=== PATIENT | male | born 1960 | race Caucasian/White ===

== ENCOUNTER → 2017-06-20 | Outpatient (CLI) | payer BC ==
[2017-06-20 07:35] LABS: ALT 38 U/L (21-72); AST 27 U/L (17-59); Albumin 4.2 g/dL (3.5-5.0); Alkaline Phosphatase 63 U/L (38-126); Anion Gap 9 mmol/L; Blood Urea Nitrogen 19 mg/dL (9-20); Calcium 9.5 mg/dL (8.4-10.2); Carbon Dioxide 31 mmol/L (22-30); Chloride 101 mmol/L (98-107); Cholesterol 171 mg/dL (<200); Glucose 101 mg/dL (74-99); HDL Cholesterol 43 mg/dL (40-60); LDL Cholesterol,Calculated 108 mg/dL (0-99); Potassium 4.6 mmol/L (3.5-5.1); Sodium 141 mmol/L (137-145); Total Bilirubin 0.5 mg/dL (0.2-1.3); Total Protein 7.2 g/dL (6.3-8.2); Triglycerides 101 mg/dL (<150)
== END | disposition home or self-care (01) ==
LOC: LABWHC1 06:59
PROVIDERS: ATTEND Internal Medicine Endocrinology, Diabetes & Metabolism
DX: E10.65 Type 1 diabetes mellitus with hyperglycemia (principal); E03.8 Other specified hypothyroidism; E78.5 Hyperlipidemia, unspecified
CPT/HCPCS: 36415; 80053; 80061; 82043; 82570; 84439; 84443

== ENCOUNTER → 2017-10-19 | Outpatient (CLI) | payer BC | END | disposition home or self-care (01) | LOC: LABWHC1 11:42 | PROVIDERS: ATTEND Internal Medicine Endocrinology, Diabetes & Metabolism | DX: E10.65 Type 1 diabetes mellitus with hyperglycemia (principal) | CPT/HCPCS: 36415; 84443 ==

== ENCOUNTER → 2018-02-27 | Outpatient (CLI) | payer BC ==
[2018-02-27 11:29] LABS: Albumin 4.2 g/dL (3.80-4.90); Albumin/Globulin Ratio 1.83 (1.20-2.10); Anion Gap 4.4 mmol/L (4.00-12.00); Carbon Dioxide 30.6 mmol/L (21.6-31.8); Globulin 2.3 g/dL (2.1-3.7); LDL Cholesterol,Calculated 83.8 mg/dL (0.0-131.0); Potassium 4.3 mmol/L (3.5-5.5); Total Bilirubin 0.3 mg/dL (0.2-1.2); Total Protein 6.5 g/dL (6.2-8.2); VLDL Calculation 29.2 mg/dL (5.00-40.00)
[2018-02-27 11:38] LABS: PSA Annual Screen 0.3 ng/mL (0.0-4.0)
[2018-02-27 12:57] LABS: Hemoglobin A1C 8.3 % (4.0-6.0)
== END | disposition home or self-care (01) ==
LOC: LABWHC1 07:05
PROVIDERS: ATTEND Internal Medicine Endocrinology, Diabetes & Metabolism
DX: E10.65 Type 1 diabetes mellitus with hyperglycemia (principal); E03.8 Other specified hypothyroidism; Z12.5 Encounter for screening for malignant neoplasm of prostate
CPT/HCPCS: 80061; 80053; 84443; 82043; 82570; 83036; 36415; G0103

== ENCOUNTER → 2018-10-04 | Outpatient (CLI) | payer OTHER ==
[2018-10-04 16:58] LABS: African American GFR (CKD) 77.3 (60.0-200.0); Albumin 4.1 g/dL (3.80-4.90); Albumin/Globulin Ratio 1.41 (1.60-3.17); Anion Gap 7.5 mmol/L (4.00-12.00); BUN/Creat Ratio 16.67 Ratio (12.00-20.00); Calcium 9.2 mg/dL (8.7-10.3); Carbon Dioxide 27.5 mmol/L (21.6-31.8); Globulin 2.9 g/dL (1.6-3.3); LDL Cholesterol,Calculated 149.6 mg/dL (0.0-131.0); Potassium 4.2 mmol/L (3.5-5.5); Total Bilirubin 0.5 mg/dL (0.3-1.2); VLDL Calculation 22.4 mg/dL (5.00-40.00)
[2018-10-04 19:06] LABS: Hemoglobin A1C 7.7 % (4.0-6.0)
== END | disposition home or self-care (01) ==
LOC: LABWHC1 07:51
PROVIDERS: ATTEND Internal Medicine Endocrinology, Diabetes & Metabolism
DX: E10.65 Type 1 diabetes mellitus with hyperglycemia (principal)
CPT/HCPCS: 36415; 80053; 80061; 82043; 82570; 83036; 84443

== ENCOUNTER → 2019-02-15 | Outpatient (CLI) | payer OTHER ==
[2019-02-15 11:46] LABS: African American GFR (CKD) 70.2 (60.0-200.0); Albumin 4.3 g/dL (3.80-4.90); Albumin/Globulin Ratio 1.65 (1.60-3.17); Anion Gap 9.9 mmol/L (4.00-12.00); BUN/Creat Ratio 13.85 Ratio (12.00-20.00); Calcium 9.5 mg/dL (8.7-10.3); Carbon Dioxide 30.1 mmol/L (21.6-31.8); Chol/HDL Ratio 4.09; Globulin 2.6 g/dL (1.6-3.3); LDL Cholesterol,Calculated 109.8 mg/dL (0.0-131.0); Potassium 4.4 mmol/L (3.5-5.5); Total Bilirubin 0.5 mg/dL (0.2-1.2); Total Protein 6.9 g/dL (6.2-8.2); VLDL Calculation 23.2 mg/dL (5.00-40.00)
[2019-02-15 12:16] LABS: Hemoglobin A1C 8.1 % (4.0-6.0)
== END | disposition home or self-care (01) ==
LOC: LABWHC1 07:29
PROVIDERS: ATTEND Internal Medicine Endocrinology, Diabetes & Metabolism
DX: E10.65 Type 1 diabetes mellitus with hyperglycemia (principal); I10 Essential (primary) hypertension; E03.8 Other specified hypothyroidism; E78.2 Mixed hyperlipidemia; Z96.41 Presence of insulin pump (external) (internal); Z87.891 Personal history of nicotine dependence
CPT/HCPCS: 36415; 80053; 80061; 82043; 82570; 83036; 84443

== ENCOUNTER → 2019-09-26 | Outpatient (CLI) | payer OTHER ==
[2019-09-26 18:22] LABS: African American GFR (CKD) 69.7 (60.0-200.0); Albumin 4.4 g/dL (3.80-4.90); Albumin/Globulin Ratio 1.57 (1.60-3.17); Anion Gap 8.8 mmol/L (4.00-12.00); BUN/Creat Ratio 16.15 Ratio (12.00-20.00); Calcium 9.7 mg/dL (8.7-10.3); Carbon Dioxide 26.2 mmol/L (21.6-31.8); Chol/HDL Ratio 4.45; Globulin 2.8 g/dL (1.6-3.3); LDL Cholesterol,Calculated 121.8 mg/dL (0.0-131.0); Non-African American GFR(CKD) 60.1 (60.0-200.0); Potassium 4.2 mmol/L (3.5-5.5); Total Bilirubin 0.7 mg/dL (0.3-1.2); Total Protein 7.2 g/dL (6.2-8.2); VLDL Calculation 23.2 mg/dL (5.00-40.00)
[2019-09-26 18:42] LABS: Urine Creatinine 100.5 mg/dL
[2019-09-26 20:51] LABS: Hemoglobin A1C 7.6 % (4.0-6.0)
== END | disposition home or self-care (01) ==
LOC: LABWHC1 08:12
PROVIDERS: ATTEND Internal Medicine Endocrinology, Diabetes & Metabolism
DX: E10.65 Type 1 diabetes mellitus with hyperglycemia (principal)
CPT/HCPCS: 36415; 80053; 80061; 82043; 82570; 83036; 84443

== ENCOUNTER → 2020-04-23 | Outpatient (CLI) | payer OTHER ==
[2020-04-23 16:35] LABS: Hemoglobin A1C 7.5 % (4.0-6.0)
[2020-04-23 17:20] LABS: African American GFR (CKD) 69.2 (60.0-200.0); Albumin 4.6 g/dL (3.80-4.90); Albumin/Globulin Ratio 1.77 (1.60-3.17); BUN/Creat Ratio 13.85 Ratio (12.00-20.00); Calcium 9.4 mg/dL (8.7-10.3); Chol/HDL Ratio 4.79; Globulin 2.6 g/dL (1.6-3.3); LDL Cholesterol,Calculated 140.8 mg/dL (0.0-131.0); Non-African American GFR(CKD) 59.7 (60.0-200.0); Potassium 4.1 mmol/L (3.5-5.5); Total Bilirubin 0.5 mg/dL (0.3-1.2); Total Protein 7.2 g/dL (6.2-8.2); VLDL Calculation 22.2 mg/dL (5.00-40.00)
[2020-04-23 20:36] LABS: Urine Creatinine 204.4 mg/dL
== END | disposition home or self-care (01) ==
LOC: LABWHC1 07:54
PROVIDERS: ATTEND Internal Medicine Endocrinology, Diabetes & Metabolism
DX: E10.65 Type 1 diabetes mellitus with hyperglycemia (principal)
CPT/HCPCS: 36415; 80053; 80061; 82043; 82570; 83036; 84443

== ENCOUNTER → 2020-11-05 | Outpatient (CLI) | payer OTHER ==
[2020-11-05 12:14] LABS: Urine Creatinine 188.7 mg/dL
[2020-11-05 15:11] LABS: African American GFR (CKD) 76.3 (60.0-200.0); Albumin 4.4 g/dL (3.80-4.90); Albumin/Globulin Ratio 1.63 (1.60-3.17); Anion Gap 15.6 mmol/L (4.00-12.00); BUN/Creat Ratio 18.33 Ratio (12.00-20.00); Carbon Dioxide 19.4 mmol/L (21.6-31.8); Chol/HDL Ratio 4.44; Globulin 2.7 g/dL (1.6-3.3); LDL Cholesterol,Calculated 97.2 mg/dL (0.0-131.0); Non-African American GFR(CKD) 65.8 (60.0-200.0); Potassium 4.3 mmol/L (3.5-5.5); Total Bilirubin 0.5 mg/dL (0.3-1.2); Total Protein 7.1 g/dL (6.2-8.2); VLDL Calculation 19.8 mg/dL (5.00-40.00)
[2020-11-05 16:35] LABS: Hemoglobin A1C 7.9 % (4.0-6.0)
== END | disposition home or self-care (01) ==
LOC: LABWHC1 07:14
PROVIDERS: ATTEND Internal Medicine Endocrinology, Diabetes & Metabolism
DX: E10.65 Type 1 diabetes mellitus with hyperglycemia (principal); E03.8 Other specified hypothyroidism
CPT/HCPCS: 36415; 80053; 80061; 82043; 82570; 83036; 84443

== ENCOUNTER → 2021-08-16 | Outpatient (CLI) | payer OTHER ==
[2021-08-17 02:34] LABS: ALT 27 U/L (10-49); AST 24 U/L (14-35); African American GFR (CKD) 62.8 (60.0-200.0); Albumin 4.4 g/dL (3.8-4.9); Albumin/Globulin Ratio 1.52 (1.60-3.17); Alkaline Phosphatase 51 U/L (41-126); BUN/Creat Ratio 12.57 Ratio (12.00-20.00); Blood Urea Nitrogen 17.6 mg/dL (9.0-27.0); Calcium 9.3 mg/dL (8.7-10.3); Carbon Dioxide 23.4 mmol/L (20.0-27.5); Chloride 101 mmol/L (96-109); Chol/HDL Ratio 4.31 Ratio; Globulin 2.9 g/dL (1.6-3.3); Glucose 83 mg/dL (70-110); LDL Cholesterol,Calculated 110.9 mg/dL (0.0-131.0); Non-African American GFR(CKD) 54.2 (60.0-200.0); Sodium 137 mmol/L (135-145); Total Protein 7.3 g/dL (6.2-8.2)
== END | disposition home or self-care (01) ==
LOC: LABWHC1 07:05
PROVIDERS: ATTEND Internal Medicine Endocrinology, Diabetes & Metabolism
DX: E10.65 Type 1 diabetes mellitus with hyperglycemia (principal)
CPT/HCPCS: 36415; 80053; 80061; 82043; 82570; 83036; 84443

== ENCOUNTER → 2022-01-18 | Outpatient (CLI) | payer OTHER ==
[2022-01-18 12:56] LABS: Creatinine,Urine Random 118.8 mg/dL
[2022-01-18 15:04] LABS: LDL Cholesterol,Calculated 100.6 mg/dL (0.0-131.0); VLDL Calculation 19.08 mg/dL (5.00-40.00)
[2022-01-18 15:05] LABS: ALT 23 U/L (10-49); AST 18 U/L (14-35); Albumin 4.3 g/dL (3.8-4.9); Albumin/Globulin Ratio 1.61 (1.60-3.17); Alkaline Phosphatase 62 U/L (41-126); BUN/Creat Ratio 13.72 Ratio (12.00-20.00); Blood Urea Nitrogen 16.6 mg/dL (9.0-27.0); Calcium 9.5 mg/dL (8.7-10.3); Carbon Dioxide 28.5 mmol/L (20.0-27.5); Chloride 98 mmol/L (96-109); Globulin 2.7 g/dL (1.6-3.3); Glucose 214 mg/dL (70-110); Non-African American GFR(CKD) 64.7 (60.0-200.0); Potassium 4.8 mmol/L (3.5-5.5); Sodium 135 mmol/L (135-145)
== END | disposition home or self-care (01) ==
LOC: LABWHC1 07:26
PROVIDERS: ATTEND Internal Medicine Endocrinology, Diabetes & Metabolism
DX: E10.65 Type 1 diabetes mellitus with hyperglycemia (principal)
CPT/HCPCS: 36415; 80053; 80061; 82570; 83036; 84156; 84443

== ENCOUNTER → 2022-08-23 | Outpatient (CLI) | payer OTHER ==
[2022-08-23 11:10] LABS: ALT 25 U/L (10-49); AST 16 U/L (14-35); African American GFR (CKD) 75.2 (60.0-200.0); Albumin 4.4 g/dL (3.8-4.9); Albumin/Globulin Ratio 1.69 (1.60-3.17); Alkaline Phosphatase 62 U/L (41-126); BUN/Creat Ratio 12.33 Ratio (12.00-20.00); Blood Urea Nitrogen 14.8 mg/dL (9.0-27.0); Calcium 9.6 mg/dL (8.7-10.3); Carbon Dioxide 28.3 mmol/L (20.0-27.5); Chloride 100 mmol/L (96-109); Globulin 2.6 g/dL (1.6-3.3); Glucose 158 mg/dL (70-110); LDL Cholesterol,Calculated 102.6 mg/dL (0.0-131.0); Non-African American GFR(CKD) 64.9 (60.0-200.0); Potassium 4.6 mmol/L (3.5-5.5); Sodium 139 mmol/L (135-145)
[2022-08-23 17:33] LABS: Microalbumin Creatinine Ratio <30 mg/g Creat (0-30); Urine Creatinine 91.3 mg/dL (39.0-259.0)
== END | disposition home or self-care (01) ==
LOC: LABWHC1 07:12
PROVIDERS: ATTEND Internal Medicine Endocrinology, Diabetes & Metabolism
DX: E10.65 Type 1 diabetes mellitus with hyperglycemia (principal)
CPT/HCPCS: 36415; 80053; 80061; 82043; 82570; 83036; 84153; 84443

== ENCOUNTER → 2023-08-01 | Outpatient (CLI) | payer OTHER ==
[2023-08-01 13:54] LABS: ALT 23 U/L (10-49); AST 22 U/L (14-35); Albumin 4.2 g/dL (3.8-4.9); Albumin/Globulin Ratio 1.56 Ratio (1.60-3.17); Alkaline Phosphatase 57 U/L (41-126); BUN/Creat Ratio 15.25 Ratio (12.00-20.00); Blood Urea Nitrogen 18.3 mg/dL (9.0-27.0); Calcium 9.5 mg/dL (8.7-10.3); Carbon Dioxide 25.8 mmol/L (21.6-31.8); Chloride 98 mmol/L (96-109); Chol/HDL Ratio 4.48 Ratio; Globulin 2.7 g/dL (1.6-3.3); Glucose 123 mg/dL (70-110); LDL Cholesterol,Calculated 121.7 mg/dL (0.0-131.0); Potassium 4.2 mmol/L (3.5-5.5); Sodium 136 mmol/L (135-145); Total Bilirubin 0.5 mg/dL (0.3-1.2); Total Protein 6.9 g/dL (6.2-8.2)
[2023-08-01 15:54] LABS: Prostate Specific Antigen 0.33 ng/mL (0.000-4.500)
[2023-08-01 19:47] LABS: Microalbumin Creatinine Ratio <7 mg/g Cr (0-30)
== END | disposition home or self-care (01) ==
LOC: LABWHC1 07:31
PROVIDERS: ATTEND Internal Medicine Endocrinology, Diabetes & Metabolism
DX: E10.65 Type 1 diabetes mellitus with hyperglycemia (principal)
CPT/HCPCS: 36415; 80053; 80061; 82043; 82570; 83036; 84153; 84443

== ENCOUNTER → 2024-02-23 | Outpatient (CLI) | payer OTHER ==
[2024-02-23 10:53] LABS: ALT 27 U/L (10-49); AST 24 U/L (14-35); Albumin 4.4 g/dL (3.8-4.9); Albumin/Globulin Ratio 1.57 Ratio (1.60-3.17); Alkaline Phosphatase 58 U/L (41-126); BUN/Creat Ratio 14.69 Ratio (12.00-20.00); Blood Urea Nitrogen 19.1 mg/dL (9.0-27.0); Calcium 9.5 mg/dL (8.7-10.3); Carbon Dioxide 27.1 mmol/L (21.6-31.8); Chloride 101 mmol/L (96-109); Chol/HDL Ratio 4.12 Ratio; Globulin 2.8 g/dL (1.6-3.3); Glucose 71 mg/dL (70-110); LDL Cholesterol,Calculated 110.2 mg/dL (0.0-131.0); Potassium 4.2 mmol/L (3.5-5.5); Sodium 140 mmol/L (135-145); Total Bilirubin 0.6 mg/dL (0.3-1.2); Total Protein 7.2 g/dL (6.2-8.2)
[2024-02-23 13:26] LABS: Microalbumin Creatinine Ratio <11 mg/g Cr (0-30)
== END | disposition home or self-care (01) ==
LOC: LABWHC1 07:11
PROVIDERS: ATTEND Internal Medicine Endocrinology, Diabetes & Metabolism
DX: E10.65 Type 1 diabetes mellitus with hyperglycemia (principal)
CPT/HCPCS: 36415; 80053; 80061; 82043; 82570; 83036; 84443

== ENCOUNTER → 2024-06-17 | Outpatient (CLI) | payer OTHER ==
[2024-06-17 10:30] LABS: Microalbumin Creatinine Ratio <6 mg/g Cr (0-30)
[2024-06-17 10:46] LABS: ALT 26 U/L (10-49); AST 24 U/L (14-35); Albumin 4.2 g/dL (3.8-4.9); Albumin/Globulin Ratio 1.56 Ratio (1.60-3.17); Alkaline Phosphatase 54 U/L (41-126); BUN/Creat Ratio 13.54 Ratio (12.00-20.00); Blood Urea Nitrogen 17.6 mg/dL (9.0-27.0); Calcium 9.3 mg/dL (8.7-10.3); Carbon Dioxide 28.3 mmol/L (21.6-31.8); Chloride 102 mmol/L (96-109); Chol/HDL Ratio 3.79 Ratio; Globulin 2.7 g/dL (1.6-3.3); Glucose 94 mg/dL (70-110); Potassium 4.4 mmol/L (3.5-5.5); Sodium 140 mmol/L (135-145); Total Bilirubin 0.4 mg/dL (0.3-1.2); Total Protein 6.9 g/dL (6.2-8.2); VLDL Calculation 18.22 mg/dL (5.00-40.00)
== END | disposition home or self-care (01) ==
LOC: LABWHC1 07:29
PROVIDERS: ATTEND Internal Medicine Endocrinology, Diabetes & Metabolism
DX: E10.65 Type 1 diabetes mellitus with hyperglycemia (principal)
CPT/HCPCS: 36415; 80053; 80061; 82043; 82570; 83036; 84443